=== PATIENT | female | born 1955 | race Caucasian/White ===

== ENCOUNTER 2023-04-04 19:52 | Emergency (ER) | payer OTHER ==
[2023-04-04 19:58] VITALS: BMI 28.3
[2023-04-04] MEDS ORDERED: LIDOCAINE PATCH REMOVAL MC SCH (22:00)
[2023-04-04] MEDS ORDERED: ACETAMINOPHEN 1000 MG/100 ML BAG IVPB ONE (22:25)
[2023-04-04] MEDS ORDERED: ACETAMINOPHEN INJECTION 100 ML IVPB ONE ×2 (22:36→22:40)
[2023-04-04 22:48] LABS: BASO % 1.1 % (0-2.0); EOS % 2.3 % (0-4.5); HEMATOCRIT 42.7 % (32.4-45.2); HEMOGLOBIN 14.4 GM/dL (10.7-15.3); LYMPH % 35.4 % (8-40); MCH 28.1 pg (25.7-33.7); MCHC 33.7 g/dl (32.0-36.0); MEAN CELL VOLUME 83.6 fl (80-96); MEAN PLT VOLUME 7.7 fl (7.5-11.1); MONO % 7.2 % (3.8-10.2); PLATELET COUNT 302 10^3/uL (134-434); RBC 5.11 M/mm3 (3.60-5.2); RDW 14.6 % (11.6-15.6); WHITE BLOOD COUNT 6.8 K/mm3 (4.0-10.0)
[2023-04-04] MEDS ORDERED: LIDOCAINE 5% TOPICAL PATCH TP ONE (22:49)
[2023-04-04] MEDS ORDERED: METHOCARBAMOL 500 MG TABLET PO ONE (22:50)
[2023-04-04] MEDS ORDERED: METHOCARBAMOL 500 MG TABLET ONE (23:02)
[2023-04-04] MEDS ORDERED: LIDOCAINE 5% TOPICAL PATCH ONE (23:02)
[2023-04-04 23:07] LABS: POTASSIUM 4.5 mmol/L (3.5-5.1)
[2023-04-04 23:09] LABS: ALBUMIN 3.9 g/dl (3.4-5.0); CALCIUM 9.1 mg/dL (8.5-10.1)
[2023-04-04 23:10] LABS: BLOOD UREA NITROGEN 24.5 mg/dL (7-18)
[2023-04-04 23:12] LABS: CREATININE 0.9 mg/dL (0.55-1.3)
[2023-04-04 23:14] LABS: BILIRUBIN,TOTAL 0.4 mg/dL (0.2-1); TOT PROT 7.6 g/dl (6.4-8.2)
[2023-04-05 01:16] VITALS: BP 113/86; PULSE 68; RESP 14; TEMP 97.9
== END 2023-04-05 01:15 | disposition home or self-care (01) ==
LOC: JER 19:52 → JERFT 19:52 → JER 04-05 01:15
PROC: 3E033NZ Introduction of Analgesics, Hypnotics, Sedatives into Peripheral Vein, Percutaneous Approach (ICD-10-PCS; principal; 2023-04-04)
DX: R10.9 Unspecified abdominal pain (principal); M25.562 Pain in left knee; M25.532 Pain in left wrist; M79.662 Pain in left lower leg; V43.53XA Car driver injured in collision with pick-up truck in traffic accident, initial encounter; Y92.410 Unspecified street and highway as the place of occurrence of the external cause
CPT/HCPCS: 36415; 71260-TC; 73110-TC-LT-FY; 73130-TC-LT-FY; 73562-TC-LT-FY; 73590-TC-LT-FY; 74177-TC; 80053; 85025; 96374; 99285-25; Q9967